=== PATIENT | female | born 1975 | race Two or more races ===

== ENCOUNTER 2017-06-09 14:07 | Outpatient (CLI) | payer OTHER | END 2017-06-09 15:11 | disposition home or self-care (01) | LOC: MAMO-SONO 14:07 | DX: Z12.31 Encounter for screening mammogram for malignant neoplasm of breast (principal); N64.4 Mastodynia; N60.11 Diffuse cystic mastopathy of right breast ==

== ENCOUNTER 2017-07-06 10:16 | Inpatient (IN) | payer OTHER ==
[~2017-07-06] VITALS: Ht 172.7 cm; Wt 87.1 kg
[2017-07-06] MEDS ORDERED: VITAMIN D2000 UNI1 PO (10:59)
== END 2017-07-15 12:46 | DRG 743 ==
LOC: O/R 07-12 05:50 → SURG 07-12 07:00 → RECOVERY 07-12 09:59 → SURG 07-12 10:16 → OB/GYN 07-12 11:38
PROVIDERS: Obstetrics & Gynecology Maternal & Fetal Medicine
PROC: 0UT90ZL Resection of Uterus, Supracervical, Open Approach (ICD-10-PCS; principal; 2017-07-12 07:00)
DX: D25.1 Intramural leiomyoma of uterus (principal); N80.0 Endometriosis of uterus

== ENCOUNTER 2020-10-14 06:23 | Day surgery (SDC) | payer OTHER ==
[~2020-10-14 06:23] MED LIST: VITAMIN D2000 UNI1 PO
== END 2020-10-14 14:00 | disposition home or self-care (01) ==
LOC: CIR.AMB 06:23 → EDSTATUS 08:00 → CIR.AMB 08:00
PROVIDERS: ATTEND Obstetrics & Gynecology Maternal & Fetal Medicine
DX: N84.0 Polyp of corpus uteri (principal); Z20.822 Contact with and (suspected) exposure to COVID-19

== ENCOUNTER 2022-10-11 07:38 | Emergency (ER) | payer OTHER ==
[~2022-10-11] VITALS: Ht 172.7 cm; Wt 79.4 kg
== END 2022-10-11 09:13 | disposition home or self-care (01) ==
LOC: ER 07:38
DX: S80.02XA Contusion of left knee, initial encounter (principal); S80.01XA Contusion of right knee, initial encounter; W19.XXXA Unspecified fall, initial encounter; Y93.9 Activity, unspecified; Y92.9 Unspecified place or not applicable; Y99.9 Unspecified external cause status; Z88.8 Allergy status to other drugs, medicaments and biological substances